=== PATIENT | male | born 1985 | race Caucasian/White ===

== ENCOUNTER 2022-08-16 14:42 | Emergency (ER) | payer BC ==
--- OUTSIDE RECORDS SUMMARY | 2022-08-16 14:46 | XMS REPORT | Continuity of Care Document ---
:1985 Author Organization [facility] t Address [address] [place] [address] Care Team Providers Name Role Phone RHYS DAMON Primary Care Physician Unavailable Desi Ibarra Attending Clinician Unknown, Attending Attending Clinician Unavailable DESI CORNEJO Attending Clinician Unavailable Doctor Unassigned, [place] Attending Clinician Unavailable Peg Attending Clinician Unavailable Omid Collins Attending Clinician [phone] DYLON Attending Clinician Unavailable Tamiko Ayon Attending Clinician [phone] LUCINA Attending Clinician Unavailable Peg Admitting Clinician Unavailable DYLON Admitting Clinician Unavailable LUCINA Admitting Clinician Unavailable Payers Payer Name Policy Type Policy Number Effective Date Expiration Date S ak[place] [id number] 2020 00:00:00 Problems Condition Condition Condition Status Onset Resolution Last Treating Co mments Source Name Details Category Date Date Treatment Clinician Date Mixed Mixed Problem Active [facility] anxiety Anxiety 4-13 Communi and and 00:00: ty depressive Depressive 00 Ho spita disorder Disorder l Clinics Attention Attention Problem Active 2019-06 Swe charity deficit Deficit 2-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 Allergies, Adverse Reactions, Alerts Allergy Allergy Status Severity Reaction(s) Onset Inactive Treating Comm ents Source Name Type Date Date Clinician NO KNOWN Drug Active Univers ALLERGIE Class [facility] Social History Social Habit Start Date Stop Date Quantity Comments Source Exposure to 2022-07-06 2022-07-16 Not sure [facility] SARS-CoV-2 (event) 00:00:00 17:21:00 Medica l Branch Sex Assigned At [birth year] [facility] [place] 00:00:00 00:00:00 Medical Branch Smoking Status Start Date Stop Date Source Never Smoker [facility] Tobacco smoking consumption [facility] Medical unknown Branch Medications Ordered Filled Start Stop Current Ordering Indication Dosage Frequency Signature Comments Components Source Medication Medication Date Date Medication? Clinician (SIG) Name Name No known No No known Unive rs medications 1-20 medication it y of 17:39: s [address] Bactrim DS Bactrim DS No 1 Q12H Bactrim DS [facility] 800 mg-160 800 mg-160 800 mg-160 Communi mg tablet mg tablet mg tablet ty Take 1 Take 1 Take 1 Hospita tablet tablet tablet l every 12 every 12 every 12 Cli nics hours by hours by hours by oral route oral route oral route for 10 for 10 for 10 days. days. days. mupirocin 2 mupirocin 2 No mupirocin [facility] % topical % topical 2 % Commu ni ointment ointment topical ty APPLY A APPLY A ointment Hospi ta SMALL SMALL APPLY A l AMOUNT TO AMOUNT TO SMALL Clin ics THE THE AMOUNT TO AFFECTED AFFECTED THE AREA BY AREA BY AFFECTED TOPICAL TOPICAL AREA BY ROUTE 3 ROUTE 3 TOPICAL TIMES PER TIMES PER ROUTE 3 DAY X 10 DAY X 10 TIMES PER days days DAY X 10 days dexmethylph dexmethylph No 1capsul Q1D dexmethylp Bond enidate ER enidate ER e(s) henidate Communi 15 mg 15 mg ER 15 mg ty capsule,ext capsule,ext capsule,ex Hospita ended ended tended l release release release Clinic s [id number]- [id number]- [id number] 50 Take 1 50 Take 1 -50 Take 1 capsule capsule capsule every day every day every day by oral by oral by oral route as route as route as directed directed directed for 30 for 30 for 30 days. days. days. dexmethylph dexmethylph No dexmethylp [facility] enidate ER enidate ER henidate Communi 15 mg 15 mg ER 15 mg ty capsule,ext capsule,ext capsule,ex Hospita ended ended tended l release release release Clinic s - - [id number] 50 TAKE 1 50 TAKE 1 -50 TAKE 1 CAPSULE BY CAPSULE BY CAPSULE BY MOUTH EVERY MOUTH EVERY MOUTH DAY DAY EVERY DAY DIRECTED DIRECTED DIRECTED dexmethylph dexmethylph No dexmethylp [facility] enidate ER enidate ER henidate Communi 15 mg 15 mg ER 15 mg ty capsule,ext capsule,ext capsule,ex Hospita ended ended tended l release release release Clinic s [id number]- - [id number] 50 TAKE 1 50 TAKE 1 -50 TAKE 1 CAPSULE BY CAPSULE BY CAPSULE BY MOUTH EVERY MOUTH EVERY MOUTH DAY DAY EVERY DAY DIRECTED DIRECTED DIRECTED dexmethylph dexmethylph No dexmethylp [facility] enidate ER enidate ER henidate Communi 15 mg 15 mg ER 15 mg ty capsule,ext capsule,ext capsule,ex Hospita ended ended tended l release release release Clinic s [id number]- [id number]- [id number] 50 TAKE 1 50 TAKE 1 -50 TAKE 1 CAPSULE BY CAPSULE BY CAPSULE BY MOUTH EVERY MOUTH EVERY MOUTH DAY DAY EVERY DAY DIRECTED DIRECTED DIRECTED cyclobenzap cyclobenzap No 1 BID cyclobenza Bond rine 5 mg rine 5 mg mary jo 5 mg Communi tablet Take tablet Take tablet ty 1 tablet 1 tablet Take 1 Hospi ta twice a day twice a day tablet l by oral by oral twice a Clinic s route as route as day by needed for needed for oral route 14 days. 14 days. as needed for 14 days. dexmethylph dexmethylph No dexmethylp [facility] enidate ER enidate ER henidate Communi 15 mg 15 mg ER 15 mg ty capsule,ext capsule,ext capsule,ex Hospita ended ended tended l release release release Clinic s [id number]- [id number]- [id number] 50 TAKE 1 50 TAKE 1 -50 TAKE 1 CAPSULE BY CAPSULE BY CAPSULE BY MOUTH EVERY MOUTH EVERY MOUTH DAY DAY EVERY DAY DIRECTED DIRECTED DIRECTED Immunizations Ordered Immunization Filled Immunization Date Status Commen ts Source Name Name COVID-19 COVID-19 2020-08-01 Completed [facility] (SARS-COV-2) (SARS-COV-2) 00:00:00 Hospital C linics vaccine, unspecified vaccine, unspecified SARS-COV-2 SARS-COV-2 2020-08-01 Completed [facility] ty (COVID-19) vaccine, (COVID-19) vaccine, 00:00:00 Hospital Clinics UNSPECIFIED UNSPECIFIED SARS-COV-2 SARS-COV-2 2020-08-01 Completed [facility] ty (COVID-19) vaccine, (COVID-19) vaccine, 00:00:00 Hospital Clinics UNSPECIFIED UNSPECIFIED SARS-COV-2 SARS-COV-2 2020-08-01 Completed [facility] ty (COVID-19) vaccine, (COVID-19) vaccine, 00:00:00 Hospital Clinics UNSPECIFIED UNSPECIFIED SARS-COV-2 SARS-COV-2 2020-08-01 Completed [facility] ty (COVID-19) vaccine, (COVID-19) vaccine, 00:00:00 Hospital Clinics UNSPECIFIED UNSPECIFIED COVID-19 COVID-19 2020-07-01 Completed [facility] (SARS-COV-2) (SARS-COV-2) 00:00:00 [facility] linics vaccine, unspecified vaccine, unspecified SARS-COV-2 SARS-COV-2 2020-07-01 Completed [facility] ty (COVID-19) vaccine, (COVID-19) vaccine, 00:00:00 Hospital Clinics UNSPECIFIED UNSPECIFIED SARS-COV-2 SARS-COV-2 2020-07-01 Completed [facility] ty (COVID-19) vaccine, (COVID-19) vaccine, 00:00:00 Hospital Clinics UNSPECIFIED UNSPECIFIED SARS-COV-2 SARS-COV-2 2020-07-01 Completed [facility] (COVID-19) vaccine, (COVID-19) vaccine, 00:00:00 Hospital Clinics UNSPECIFIED UNSPECIFIED SARS-COV-2 SARS-COV-2 2020-07-01 Completed [facility] ty (COVID-19) vaccine, (COVID-19) vaccine, 00:00:00 Hospital Clinics UNSPECIFIED UNSPECIFIED SARS-COV-2 SARS-COV-2 2020-07-01 Completed [facility] ty (COVID-19) vaccine, (COVID-19) vaccine, 00:00:00 Hospital Clinics UNSPECIFIED UNSPECIFIED Vital Signs Vital Name Observation Time Observation Value Comments Source Systolic blood 2022-07-16 23:22:00 124 mm[Hg] Univer sity of pressure [facility] Diastolic blood 2022-07-16 23:22:00 83 mm[Hg] Unive rsity of pressure [facility] Heart rate 2022-07-16 23:22:00 71 /min [facility] Body temperature 2022-07-16 23:22:00 37.22 [facility] Respiratory rate 2022-07-16 23:22:00 16 /min [facility] Body height 2022-07-16 23:22:00 180.3 cm Universi ty [facility] Body weight 2022-07-16 23:22:00 76.794 kg [facility] BMI 2022-07-16 23:22:00 23.61 kg/m2 [facility] Oxygen saturation in 2022-07-16 23:22:00 99 /min [facility] Arterial blood by [facility] Pulse oximetry Branch Body Weight 2021-10-15 00:00:00 2572.8 [oz_av] [facility] s BP Diastolic 2021-10-15 00:00:00 58 mm[Hg] [facility] Height 2021-10-15 00:00:00 71 [in_i] [facility] s BMI (Body Mass 2021-10-15 00:00:00 22.4 kg/m2 [facility] s BP Systolic 2021-10-15 00:00:00 117 mm[Hg] [facility] s BMI (Body Mass 2021-03-25 00:00:00 22.3 kg/m2 [facility] s BP Systolic 2021-03-25 00:00:00 131 mm[Hg] [facility] Body Weight 2021-03-25 00:00:00 2563.2 [oz_av] [facility] s BP Diastolic 2021-03-25 00:00:00 64 mm[Hg] [facility] Height 2021-03-25 00:00:00 71 [in_i] [facility] BP Diastolic 2021-02-24 00:00:00 72 mm[Hg] [facility] Height 2021-02-24 00:00:00 71 [in_i] [facility] BMI (Body Mass 2021-02-24 00:00:00 22.7 kg/m2 [facility]) [facility] s BP Systolic 2021-02-24 00:00:00 114 mm[Hg] [facility] Body Weight 2021-02-24 00:00:00 2601.6 [oz_av] [facility] s BP Diastolic 2020-10-06 00:00:00 79 mm[Hg] [facility] Height 2020-10-06 00:00:00 71 [in_i] [facility] s BMI (Body Mass 2020-10-06 00:00:00 21.6 kg/m2 [facility]) [facility] s BP Systolic 2020-10-06 00:00:00 127 mm[Hg] [facility] s Body Weight 2020-10-06 00:00:00 2483.2 [oz_av] [facility] s BP Diastolic 2020-09-15 00:00:00 79 mm[Hg] [facility] Height 2020-09-15 00:00:00 71 [in_i] [facility] BMI (Body Mass 2020-09-15 00:00:00 21.7 kg/m2 [facility]) [facility] s BP Systolic 2020-09-15 00:00:00 124 mm[Hg] [facility] Body Weight 2020-09-15 00:00:00 2486.4 [oz_av] [facility] s BP Diastolic 2020-07-17 00:00:00 83 mm[Hg] [facility] Height 2020-07-17 00:00:00 71 [in_i] [facility] BMI (Body Mass 2020-07-17 00:00:00 21.5 kg/m2 [facility] Index) Hospital Clinic s BP Systolic 2020-07-17 00:00:00 128 mm[Hg] [facility] s Body Weight 2020-07-17 00:00:00 2470.4 [oz_av] [facility] s Procedures Procedure Date / Time Performing Clinician Source Performed POCT MOLECULAR STREP 2022-07-16 23:20:00 Unknown, Attending [facility] ASSIGNMENT OF BENEFITS 2022-07-16 23:11:43 Doctor Unassigned, No [facility] XR, thoracolumbar spine, 2021-03-25 00:00:00 Critical access hospital [address] [facility] Plan of Care Planned Activity Planned Date Details Comments Source Instructions [facility] Encounters Start End Encounter Admission Attending Care Care Encounter Source Date/Time Date/Time Type Type Clinicians Facility Department ID 2022-07-16 2022-07-16 Urgent Desi Cornejo [facility] [id number] Univers 17:20:00 17:40:00 Care Unknown, Attending [facility] [id number] ity [facility] [id number] Jovanny as ROSALINE?BLEA [phone] [address] MEDICAL OFFICE BUILDING 2022-07-16 2022-07-16 Outpatient Olivia CORNEJO [facility] [id number] Univers 17:20:00 17:20:00 DESI ity [facility] 2022-07-16 2022-07-16 Orders Doctor KO [id number] Univers 00:00:00 00:00:00 Only Unassigned, CE [id number] ity of [facility] [id number] Jovanny as [phone] [address] 2021-11-26 2021-11-26 Outpatient Michaela [facility] [id number] [facility] 00:00:00 00:00:00 602 [facility] 2021-10-15 2021-10-15 Outpatient Peg [facility] [id number] Bond 10:40:00 10:40:00 421 Commun i [facility] Clinics 2021-10-15 2021-10-15 Omid [facility] [place] - Bond Bond 00:00:00 00:00:00 Torin Collins [facility] uni PA: [address] [facility] [address], [place] [address] , Ph. 2021-10-15 2021-10-15 Outpatient Dennis [facility] [id number] 00:00:00 00:00:00 Omid [id number] 2021-10-14 2021-10-14 Outpatient Peg [facility] [id number] Bond 02:14:00 02:14:00 420 [facility] i [facility] 2021-03-25 2021-03-25 Outpatient [facility] 92 Bond 05:58:00 05:58:00 _L 929 Commun i ty Hospita [facility] Clinics 2021-03-25 2021-03-25 Outpatient [facility] [id number] [id number] 00:00:00 00:00:00 , Tamiko [id number] Amirah [id number] 2021-03-25 2021-03-25 Tamiko Macario [facility] [place] - [facility] [id number] Bond 00:00:00 00:00:00 [facility] MIHIR islas-C: Hospital - ty [address] [place] [address] [address], [place] [address] , Ph. 2021-02-24 2021-02-24 Outpatient [facility] [id number] Bond 06:02:00 06:02:00 _L 831 Commun i ty Hospita l Clinics 2021-02-24 2021-02-24 Outpatient [facility] [id number] 00:00:00 00:00:00 , Tamiko [id number] Amirah [id number] 2021-02-24 2021-02-24 Tamiko Macario [facility] [place] - [facility] [id number] Bond 00:00:00 [facility]:00:[facility]-C: Hospital - [address] [facility], [place] [address] , Ph. 2020-10-06 2020-10-06 Outpatient [place] [id number] [facility] 04:13:00 04:13:00 _L 412 Commun i ty Hospita [facility] Clinics 2020-10-06 2020-10-06 Outpatient [facility] 189 [id number] 00:00:00 00:00:00 , Tamiko [id number] Amirah [id number] 2020-10-06 2020-10-06 Tamiko Macario [facility] [place] - [facility] [id number] Bond 00:00:00 00:00:00 [facility] MIHIR Albarado-C: [facility] [place] [address], [place] [address] , Ph. 2020-09-15 2020-09-15 Outpatient [facility] Bond 05:41:00 05:41:00 _L 322 Commun i ty Hospita [facility] Clinics 2020-09-15 2020-09-15 Outpatient [facility] 92 Bond 05:41:00 05:41:00 _L 408 Commun i ty Hospita l Clinics 2020-09-15 2020-09-15 Outpatient [facility] [id number] 00:00:00 00:00:00 , Tamiko [id number] Amirah [id number] 2020-09-15 2020-09-15 Tamiko Macario [facility] [place] - [place] [id number] Bond 00:00:00 [facility]:00:[facility] Hospital - ty [address] [facility] [address], [place] [address] , Ph. 2020-09-08 2020-09-08 Outpatient [place] [id number] Bond 02:48:00 02:48:00 _L 315 Commun i ty Hosp[facility] Clinics 2020-07-18 2020-07-18 Outpatient [place] [id number] [facility] 09:50:00 09:50:00 _L 122 Commun i ty Hospita [facility] Clinics 2020-07-17 2020-07-17 Outpatient [place] [id number] [facility] 05:56:00 05:56:00 _L 121 Commun i ty Hosp[facility] Clinics 2020-07-17 2020-07-17 Outpatient [facility] [id number] 00:00:00 00:00:00 , Tamiko [id number] Amirah [id number] 2020-07-17 2020-07-17 Tamiko Macario [facility] [place] - [facility] [id number] Bond 00:00:00 00:00:00 [facility] MIHIR Albarado-[facility]: Hospital - ty [address] [facility] [address], [place] [address] , Ph. 2020-07-16 2020-07-16 Outpatient [place] [id number] Bond 09:43:00 09:43:00 _L 120 Commun i ty Hosp[facility] Clinics 2020-06-18 2020-06-18 Outpatient [facility] 92 Bond 03:59:00 03:59:00 223 Commun i ty Hospita l Clinics 2020-06-17 2020-06-17 Outpatient TURNER_FA [facility] Bond 05:23:00 05:23:00 222 Commun i ty Hospita l Clinics 2020-06-17 2020-06-17 Rocio [facility] [place] - Bond [id number] Bond 00:00:00 00:00:00 Torin Son[facility] Comm uni [employer]: [address] [facility] [address], [place] [address] , Ph. Results Test Description Test Time Test Comments Results Result Comments Source POCT MOLECULAR STREP 2022-07-16 23:28:38 Test Item Value Reference Range Interpretation Comme nts POCT Molecular Strep (test code = 29304-9) Negative Negative Lab Interpretation (test code = 84766-6) Normal [facility]
--- NOTE | 2022-08-16 15:44 | RAD REPORT ---
EXAM DESCRIPTION: RAD - Chest Single View - 08/16/2022 3:34 pm CLINICAL HISTORY: ABDOMINAL DISTENTION Chest pain. COMPARISON: No comparisons FINDINGS: Portable technique limits examination quality. The lungs are grossly clear. The heart is normal in size. No displaced fractures. IMPRESSION: No acute intrathoracic process suspected.
[2022-08-16] MEDS ORDERED: NA CHLORIDE 0.9% 1,000 ML ONE (16:09)
[2022-08-16] MEDS ORDERED: ONDANSETRON 4 MG/2 ML VIAL ONE (16:09)
[2022-08-16] MEDS ORDERED: PANTOPRAZOLE 40 MG INJ ONE (16:09)
[2022-08-16 16:28] LABS: Urine Blood Trace-intact (Negative); Urine Glucose Negative (Negative); Urine Protein Trace (Negative); Urine Specific Gravity >=1.030 (1.005-1.030)
[2022-08-16 16:28] LABS: Absolute Lymphocytes (CBC) 0.4 K/uL (0.7-4.9); Hematocrit 48.8 % (39.6-49.0); Lymphocytes % 2.6 % (15.3-44.8); MCV 90.5 fL (80-100); MPV 6.9 fL (7.6-11.3); RBC Red Blood Cell Count 5.39 M/uL (4.33-5.43)
[2022-08-16 16:30] LABS: Protime INR 1.1
[2022-08-16 16:41] LABS: ALT/SGPT 33 U/L (16-61); AST/SGOT 19 U/L (15-37); Albumin 4.4 g/dL (3.4-5.0); Alkaline Phosphatase 96 U/L (45-117); BUN Blood Urea Nitrogen 14 mg/dL (7-18); Bicarbonate 25 mmol/L (21-32); Bilirubin Direct 0.2 mg/dL (0-0.2); Glomerular Filtration Rate 71 ml/min (=/>90); Glucose Level 110 mg/dL (74-106); Lipase 135 U/L (73-393); Magnesium 2.2 mg/dL (1.6-2.4); NT PRO-BNP 21 pg/mL (<125); Potassium 3.8 mmol/L (3.5-5.1); Sodium Level 138 mmol/L (136-145)
[2022-08-16 16:45] LABS: Troponin High Sensitivity < 3.0 pg/mL (<58.9)
--- NOTE | 2022-08-16 16:55 | EDPHYS ---
Physician Documentation [facility] Name: Philippe Hearn Age: 37 yrs Sex: Male : 1985 Arrival Date: 08/16/2022 Time: 14:46 Bed 14 Private MD: ANTONI Physician Arley Dixon HPI: 08/16 16:49 This 37 yrs old Male presents to ER via Ambulatory with complaints of timothy Vomiting blood. 16:49 The patient presents with abdominal pain in the epigastric area. Onset: The timothy symptoms/episode began/occurred 2 day(s) ago. The patient presents to the emergency department vomiting blood, a small amount. Onset: The symptoms/episode began/occurred just prior to arrival, this morning. Abdominal pain: none is appreciated. Modifying factors: The symptoms are alleviated by nothing, the symptoms are aggravated by nothing. The symptoms do not radiate. Associated signs and symptoms: Pertinent positives: vomiting. Historical: - Allergies: 15:57 No Known Allergies; jl7 - Home Meds: 15:57 None [Active]; jl7 - PMHx: 15:57 None; jl7 - PSHx: 15:57 None; jl7 - Immunization history:: Client reports receiving the 2nd dose of the Covid vaccine. - Social history:: Smoking status: Patient denies any tobacco usage or history of. - Family history:: not pertinent. ROS: 16:49 Constitutional: Negative for fever, chills, and weight loss, Eyes: Negative for injury, timothy pain, redness, and discharge, ENT: Negative for injury, pain, and discharge, Neck: Negative for injury, pain, and swelling, Respiratory: Negative for shortness of breath, cough, wheezing, and pleuritic chest pain, Abdomen/GI: Negative for abdominal pain, nausea, vomiting, diarrhea, and constipation, Back: Negative for injury and pain, : Negative for injury, bleeding, discharge, and swelling, MS/Extremity: Negative for injury and deformity, Skin: Negative for injury, rash, and discoloration, Neuro: Negative for headache, weakness, numbness, tingling, and seizure, Psych: Negative for depression, anxiety, suicide ideation, homicidal ideation, and hallucinations, Allergy/Immunology: Negative for hives, rash, and allergies, Endocrine: Negative for neck swelling, polydipsia, polyuria, polyphagia, and marked weight changes, Hematologic/Lymphatic: Negative for swollen nodes, abnormal bleeding, and unusual bruising. 16:49 Cardiovascular: Positive for palpitations. 16:49 Abdomen/GI: Positive for nausea and vomiting, hematemesis. Exam: 16:49 Constitutional: This is a well developed, well nourished patient who is awake, alert, timothy and in no acute distress. Head/Face: Normocephalic, atraumatic. Eyes: Pupils equal round and reactive to light, extra-ocular motions intact. Lids and lashes normal. Conjunctiva and sclera are non-icteric and not injected. Cornea within normal limits. Periorbital areas with no swelling, redness, or edema. ENT: Nares patent. No nasal discharge, no septal abnormalities noted. Tympanic membranes are normal and external auditory canals are clear. Oropharynx with no redness, swelling, or masses, exudates, or evidence of obstruction, uvula midline. Mucous membranes moist. Neck: Trachea midline, no thyromegaly or masses palpated, and no cervical lymphadenopathy. Supple, full range of motion without nuchal rigidity, or vertebral point tenderness. No Meningismus. Chest/axilla: Normal chest wall appearance and motion. Nontender with no deformity. No lesions are appreciated. Cardiovascular: Regular rate and rhythm with a normal S1 and S2. No gallops, murmurs, or rubs. Normal PMI, no JVD. No pulse deficits. Respiratory: Lungs have equal breath sounds bilaterally, clear to auscultation and percussion. No rales, rhonchi or wheezes noted. No increased work of breathing, no retractions or nasal flaring. Abdomen/GI: Soft, non-tender, with normal bowel sounds. No distension or tympany. No guarding or rebound. No evidence of tenderness throughout. Back: No spinal tenderness. No costovertebral tenderness. Full range of motion. Skin: Warm, dry with normal turgor. Normal color with no rashes, no lesions, and no evidence of cellulitis. MS/ Extremity: Pulses equal, no cyanosis. Neurovascular intact. Full, normal range of motion. Neuro: Awake and alert, GCS 15, oriented to person, place, time, and situation. Cranial nerves II-XII grossly intact. Motor strength 5/5 in all extremities. Sensory grossly intact. Cerebellar exam normal. Normal gait. Psych: Awake, alert, with orientation to person, place and time. Behavior, mood, and affect are within normal limits. 16:49 ECG was reviewed by the Attending Physician. Vital Signs: 15:55 BP 119 / 87; Pulse 105; Resp 17; Temp 98.2; Pulse Ox 100% on R/A; Weight 77.11 kg; jl7 Height 5 ft. 11 in. (180.34 cm); Pain 4/10; 16:59 BP 127 / 85; Pulse 89; Resp 16; Pulse Ox 98% on R/A; Pain 0/10; mb9 15:55 Body Mass Index 23.71 (77.11 kg, 180.34 cm) jl7 MDM: 15:10 Patient medically screened. [facility] 16:51 Differential diagnosis: bowel obstruction, Cholelithiasis, diverticulitis, gastritis, timothy Mesenteric ischemia or infarction, myocardia ischemia or infarction, non-specific abd pain, pancreatitis, Peptic Ulcer Disease. Data reviewed: vital signs, nurses notes, lab test result(s), EKG, radiologic studies, plain films. Consideration of Admission/Observation Escalation of care including admission/observation considered. I considered the following discharge prescriptions or medication management in the emergency department Medications were administered in the Emergency Department. See MAR. Independent interpretation of the following test(s) in the Emergency Department X-Ray: My interpretation is cxr. Test considered but Not performed: CT: ct abd pelvis not done. Care significantly affected by the following chronic conditions: none. 08/16 15:11 Order name: Basic Metabolic Panel [facility] 08/16 15:11 Order name: CBC with Diff 08/16 15:11 Order name: LFT's 08/16 15:11 Order name: Magnesium [facility] 08/16 15:11 Order name: NT PRO-BNP [facility] 08/16 15:11 Order name: PT-INR [facility] 08/16 15:11 Order name: Troponin HS [facility] 08/16 15:11 Order name: Lipase [facility] 08/16 16:28 Order name: Urine Dipstick-Ancillary; Complete Time: 16:32 EDMS 08/16 16:30 Order name: Protime (+INR); Complete Time: 16:32 EDNM 08/16 16:45 Order name: Basic Metabolic Panel; Complete Time: 16:47 EDNM 08/16 16:45 Order name: Liver (Hepatic) Function; Complete Time: 16:47 EDMS 08/16 16:45 Order name: Troponin High Sensitivity; Complete Time: 16:47 EDMS 08/16 16:45 Order name: NT PRO-BNP; Complete Time: 16:47 EDMS 08/16 15:11 Order name: XRAY Chest (1 view) [facility] 08/16 15:11 Order name: EKG; Complete Time: 15:12 [facility] 08/16 15:11 Order name: Cardiac monitoring; Complete Time: 16:00 [facility] 08/16 15:11 Order name: EKG - Nurse/Tech; Complete Time: 16:34 [facility] 08/16 15:11 Order name: IV Saline Lock; Complete Time: 16:21 [facility] 08/16 15:11 Order name: Labs collected and sent; Complete Time: 16:24 [facility] 08/16 15:11 Order name: O2 Per Protocol; Complete Time: 16:00 [facility] 08/16 15:11 Order name: O2 Sat Monitoring; Complete Time: 16:00 [facility] 08/16 15:11 Order name: Urine Dipstick-Ancillary (obtain specimen); Complete Time: 16:34 [facility] 08/16 15:45 Order name: RAD; Complete Time: 16:32 EDMS 08/16 16:45 Order name: Magnesium; Complete Time: 16:47 EDMS 08/16 16:45 Order name: Lipase; Complete Time: 16:47 EDMS 08/16 17:03 Order name: CBC with Automated Diff EDMS EC:49 Rate is 91 beats/min. Rhythm is regular. QRS [place] is Normal. MT interval is normal. QRS timothy interval is normal. QT interval is normal. No Q waves. T waves are Normal. No ST changes noted. Clinical impression: Normal ECG and No evidence of ischemia. Interpreted by me. Reviewed by me. Administered Medications: 16:10 Drug: ProTONIX (pantoprazole) 80 mg Route: IVP; Site: right antecubital; mb9 16:15 Drug: NS 0.9% 1000 ml Route: IV; Rate: 1 bolus; Site: right antecubital; mb9 16:24 Drug: Zofran (Ondansetron) 4 mg Route: IVP; Site: right antecubital; mb9 Disposition Summary: 08/16/22 16:54 Discharge Ordered Location: Home timothy Problem: new timothy Symptoms: have improved timothy Condition: Stable timothy Diagnosis - Vomiting timothy - Nausea with vomiting, unspecified timothy - Hematemesis timothy Followup: timothy - With: Private Physician - When: 2 - 3 days - Reason: Recheck today's complaints, Continuance of care, Re-evaluation by your physician Followup: timothy - With: Sandra Burris MD - When: 2 - 3 days - Reason: Recheck today's complaints, Re-evaluation by your physician Discharge Instructions: - Discharge Summary Sheet timothy - Gastrointestinal Bleeding timothy - Hematemesis timothy - Nausea and Vomiting, Adult timothy - Nausea and Vomiting, Adult, [id number] timothy - Upper Endoscopy, Adult timothy - Nausea, Adult, [id number] timothy - Vomiting, Adult timothy Forms: - Medication Reconciliation Form timothy - Thank You Letter timothy - Antibiotic Education timothy - Prescription Opioid Use [facility] - Work release form mb9 Prescriptions: - Protonix 40 mg Oral Tablet - take 1 tablet by ORAL route once daily; 30 tablet; Refills: 0, Product [facility] Selection Permitted - Zofran 4 mg Oral Tablet - take 1 tablet by ORAL route every 12 hours As needed; 20 tablet; Refills: 0, [facility] Product Selection Permitted Signatures: Dispatcher [employer] Arley Huber MD MD cha Waters, Shelly, SENIOR PROJECT CONTROLS SPECIALIST-C SENIOR PROJECT CONTROLS SPECIALIST-Csnw Rosa Valdez RN RN jl7 Amarilis Maddox RN RN mb9
--- NOTE | 2022-08-16 16:55 | ER ---
Nurse's Notes [facility] Name: Philippe Hearn Age: 37 yrs Sex: Male : 1985 Arrival Date: 08/16/2022 Time: 14:46 Bed 14 Private MD: Diagnosis: Vomiting;Nausea with vomiting, unspecified;Hematemesis Presentation: 08/16 15:55 Chief complaint: Patient states: N x 1 week, V/D today and vomited blood x1 about 2 jl7 hours ago. Coronavirus screen: Vaccine status: Patient reports receiving the 2nd dose of the covid vaccine. At this time, the client does not indicate any symptoms associated with coronavirus-19. Ebola Screen: No symptoms or risks identified at this time. Initial Sepsis Screen: Does the patient meet any 2 criteria? No. Patient's initial sepsis screen is negative. Does the patient have a suspected source of infection? No. Patient's initial sepsis screen is negative. Risk Assessment: Do you want to hurt yourself or someone else? Patient reports no desire to harm self or others. Onset of symptoms is unknown. 15:55 Method Of Arrival: Ambulatory jl7 15:55 Acuity: JAMAAL 3 jl7 Historical: - Allergies: 15:57 No Known Allergies; jl7 - Home Meds: 15:57 None [Active]; jl7 - PMHx: 15:57 None; jl7 - PSHx: 15:57 None; jl7 - Immunization history:: Client reports receiving the 2nd dose of the Covid vaccine. - Social history:: Smoking status: Patient denies any tobacco usage or history of. - Family history:: not pertinent. Screenin:59 [facility] ED Fall Risk Assessment (Adult) History of falling in the last 3 months, mb9 including since admission No falls in past 3 months (0 pts) Confusion or Disorientation No (0 pts) Intoxicated or Sedated No (0 pts) Impaired Gait No (0 pts) Mobility Assist Device Used No (0 pt) Altered Elimination No (0 pt) Score/Fall Risk Level 0 - 2 = Low Risk Oriented to surroundings, Maintained a safe environment, Educated pt \T\ family on fall prevention, incl call for assistance when getting out of bed. Abuse screen: Denies threats or abuse. Nutritional screening: No deficits noted. Tuberculosis screening: No symptoms or risk factors identified. Assessment: 16:20 General: Appears in no apparent distress. Behavior is calm, cooperative, appropriate mb9 for age. Pain: Denies pain. Neuro: Burch Agitation-Sedation Scale (RASS): 0 - Alert and Calm Level of Consciousness is awake, alert, obeys commands, Oriented to person, place, time, situation, Appropriate for age. Cardiovascular: Capillary refill < 3 seconds is brisk Patient's skin is warm and dry. Rhythm is regular. Respiratory: Airway is patent Respiratory effort is even, unlabored, Respiratory pattern is regular, symmetrical. GI: Abdomen is round non-distended, Bowel sounds present X 4 quads. Abd is soft Abd is non tender X 4 quads. GI: Reports nausea, vomiting bright red blood once at 1300. : Urine is clear. EENT: No signs and/or symptoms were reported regarding the EENT system. Derm: Skin is pink, warm \T\ dry. Musculoskeletal: Range of motion: intact in all extremities. Vital Signs: 15:55 BP 119 / 87; Pulse 105; Resp 17; Temp 98.2; Pulse Ox 100% on R/A; Weight 77.11 kg; jl7 Height 5 ft. 11 in. (180.34 cm); Pain 4/10; 16:59 BP 127 / 85; Pulse 89; Resp 16; Pulse Ox 98% on R/A; Pain 0/10; mb9 15:55 Body Mass Index 23.71 (77.11 kg, 180.34 cm) 7 ED Course: 14:46 Patient arrived in ED. mr 15:10 Arley Dixon MD is Attending Physician. [facility] 15:57 Triage completed. [facility] 15:57 Arm band placed on right wrist. Patient placed in waiting room, Patient notified of [facility] wait time. 15:59 Amarilis Maddox, ARMAND is Primary Nurse. mb9 16:00 Placed in gown. Bed in low position. Call light in reach. Side rails up X 1. Client mb9 placed on continuous cardiac and pulse oximetry monitoring. NIBP monitoring applied. desk monitor on. 16:21 Lipase Sent. bc6 16:21 Basic Metabolic Panel Sent. bc6 16:21 CBC with Diff Sent. bc6 16:21 LFT's Sent. bc6 16:21 Magnesium Sent. bc6 16:21 NT PRO-BNP Sent. bc6 16:21 PT-INR Sent. bc6 16:21 Troponin HS Sent. bc6 16:21 Inserted saline lock: 20 gauge in right antecubital area, using aseptic technique. bc6 16:55 Sandra Burris MD is Referral Physician. [facility] 17:00 No provider procedures requiring assistance completed. mb9 17:07 IV discontinued, intact, bleeding controlled, No redness/swelling at site. Pressure mb9 dressing applied. Administered Medications: 16:10 Drug: ProTONIX (pantoprazole) 80 mg Route: IVP; Site: right antecubital; mb9 16:15 Drug: NS 0.9% 1000 ml Route: IV; Rate: 1 bolus; Site: right antecubital; mb9 16:24 Drug: Zofran (Ondansetron) 4 mg Route: IVP; Site: right antecubital; mb9 Medication: 17:00 VIS not applicable for this client. mb9 Outcome: 16:54 Discharge ordered by . [facility] 17:07 Discharged to home ambulatory. mb9 17:07 Condition: stable 17:07 Discharge instructions given to patient, Instructed on discharge instructions, follow up and referral plans. Demonstrated understanding of instructions, follow-up care, medications, Prescriptions given X 2. 17:07 Patient left the ED. mb9 Signatures: Arley Dixon MD MD cha Rivera, Mary mr Leal, Jahala RN RN jl7 Amarilis Maddox RN RN mb9 Sade Cunha [facility]
[2022-08-16 19:12] VITALS: TEMP 98.2
[2022-08-16 19:13] VITALS: BP 127/85; O2SAT 98
--- NOTE | 2022-08-17 16:18 | EKG ---
Test Date: 2022-08-16 Test Time: 16:32:37 Process Analyst: MB MEASUREMENT RESULTS: Intervals: Rate: 91 VT: 120 QRSD: 88 QT: 332 QTc: 408 [place]: P: 82 VT: 120 QRS: 83 T: 74 INTERPRETIVE STATEMENTS: Normal sinus rhythm Normal ECG No previous ECG available for comparison Electronically Signed On 08-17-22 16:17:22 [employer]OLDER [employer] by Khalif Martins
== END 2022-08-16 17:07 | disposition home or self-care (01) ==
LOC: ER 14:42
DX: R31.9 Hematuria, unspecified (principal); R11.2 Nausea with vomiting, unspecified; R11.10 Vomiting, unspecified; R00.2 Palpitations
CPT/HCPCS: 93005; 85025; 80048; 36415; 83735; 85610; 80076; 81003; 84484; 83690; 83880; 71045; 96375; 96374; 99284; C9113; J7030; J2405